=== PATIENT | female | born 1950 | race Caucasian/White ===

== ENCOUNTER 2016-04-20 13:15 | Outpatient (RCR) | payer OTHER, MEDICARE ==
[~2016-04-20 13:15] MED LIST: AMYTRIPTILINE; ANTIVERT 25MG25 MG PO; ASPIRIN 81M81 MG/TA2 PO; ASPIRIN E.C. 8181 MG PO; BACTRIM DS 8001 TAB PO; BETAPACE 80MG80 MG PO; CALCIUM 1200 W/1 SGL PO; CARDIZEM CD 12120 MG PO; CATAPRES 0.1MG0.1 MG PO; CEPHALEXIN500 M1 PO; CLARITIN 1010 MG/TAB PO; COLACE 100100 MG/CAP PO; COMBIRESP IH; CORDARONE200 MG/TAB PO; COUMADIN 5MG5 MG/TAB PO; COUMADIN PO; DILTIAZEM; DILTIAZEM120 MG PO; DOXYCYCLINE 10100 MG PO; ELAVIL50 MG PO; FLECAINIDE150 MG PO; FLONASE NASAL S16 GM NS; FOLIC ACID 40400 MCG PO; GLUCOPHAGE500 MG/TAB PO; GLUCOTROL 5M5 MG/TAB PO; HALCION; HALCION0.25 M1 PO; HALCION0.25 MG PO; HCTZ; HCTZ 25MG TAB25 MG PO; HCTZ 25MG25 MG PO; HYDROCODONE/APAP PO; IRON TABLETS325 MG PO; LASIX 20MG TABL20 MG PO; LASIX 40MG TABL40 MG PO; LEADER CLE17 GM/Dose PO; LEVAQUIN 750MG750 M1 PO; LEVOTHYROXIN0.075 MG PO; LISINOPRIL/HCTZ1 TA1 PO; LOPRESSOR 225 MG/TAB PO; MOTRIN 800800 MG/TAB PO; NEURONTIN300 MG/CAP PO; NEXIUM 20MG20 MG PO; NITROSTAT0.4 MG/TAB SL; NORCO 325 MG-51 TAB PO; NORCO 325 MG-7.1 TAB PO; NORVASC 10MG10 MG PO; PACERONE100 MG PO; PACERONE200 MG PO; PHENERGAN 25 TA25 MG PO; PRADAXA 150MG150 MG PO; PRAVACHOL 20MG20 MG PO; PREDNISONE10 MG PO; PREDNISONE20 MG PO; PRILOSEC 20MG20 MG PO; PRINIVIL2.5 MG PO; SENOKOT8.6 MG PO; SYNTHROID0.075 MG/T PO; SYNTHROID0.088 MG/T PO; TAMBOCOR150 MG PO; THYROID; TYLENOL 325MG325 MG PO; ULTRAM 50MG TAB50 MG; VENTOLIN0.09 MG IH; VITAMIN C500 MG PO; ZANTAC150 MG PO; ZESTORETIC 12.51 TA1 PO; ZITHROMAX 250M250 MG PO; ZOCOR5 MG PO; ZOFRAN 4MG T4 MG/TAB PO; ZOFRAN ODT4 MG PO
[2016-04-21] MEDS ORDERED: KLOR-CON M2020 MEQ PO (11:14)
[2016-05-04] MEDS ORDERED: NORCO 325 MG-7.1 TAB PO (10:15)
[2016-05-04] MEDS ORDERED: TYLENOL 325MG325 MG PO (10:16)
[2016-05-04] MEDS ORDERED: ROXICODONE 55 MG/TAB PO (10:16)
[2016-05-04] MEDS ORDERED: OYSCO 500500 M1 PO (10:17)
[2016-05-04] MEDS ORDERED: LASIX 20MG TABL20 MG PO (10:17)
[2016-05-04] MEDS ORDERED: MIRTAZAPINE7.5 MG PO (10:17)
[2016-05-04] MEDS ORDERED: KLOR-CON M2020 MEQ PO (10:18)
[2016-05-04] MEDS ORDERED: COLACE 100100 MG/CAP PO (10:19)
[2016-05-04] MEDS ORDERED: DULCOLAX S10 MG/SUPP RC (10:19)
[2016-05-04] MEDS ORDERED: ZOFRAN ODT4 MG PO (10:20)
[2016-05-04] MEDS ORDERED: MIRALAX PA17 GM/Dose PO (10:20)
[2016-05-04] MEDS ORDERED: SENOKOT S 50 MG1 TAB PO (10:20)
[2016-05-04] MEDS ORDERED: NYSTATIN POWDER30 GM TOP (10:21)
[2016-05-04] MEDS ORDERED: VITAMINC500CH PO (10:21)
[2016-05-04] MEDS ORDERED: MULTI VITAMINS1 TAB PO (10:21)
[2016-05-04] MEDS ORDERED: ATIVAN 1MG T1 MG/TAB PO (12:07)
[2016-05-04] MEDS ORDERED: TUMS ULTRA1000 MG PO (12:07)
== END 2016-06-19 | disposition still patient (30) ==
LOC: MKS.ESL.PT
DX: S62.102D Fracture of unspecified carpal bone, left wrist, subsequent encounter for fracture with routine healing (principal); W19.XXXD Unspecified fall, subsequent encounter; R53.1 Weakness
CPT/HCPCS: G0283-GP; G8978-GP; G8979-GP

== ENCOUNTER → 2016-06-20 | Outpatient (CLI) | payer OTHER, MEDICARE ==
[~2016-06-20] MED LIST changes: +ATIVAN 1MG T1 MG/TAB PO; +DULCOLAX S10 MG/SUPP RC; +KLOR-CON M2020 MEQ PO; +LIORESAL 1010 MG/TAB PO; +MIRALAX PA17 GM/Dose PO; +MIRTAZAPINE7.5 MG PO; +MULTI VITAMINS1 TAB PO; +NYSTATIN POWDER30 GM TOP; +OYSCO 500500 M1 PO; +ROXICODONE 55 MG/TAB PO; +SENOKOT S 50 MG1 TAB PO; +TUMS ULTRA1000 MG PO; +VITAMINC500CH PO
== END ==
LOC: COL.RAD 10:25
DX: R05 Cough (principal); R06.2 Wheezing; I51.7 Cardiomegaly; R09.89 Other specified symptoms and signs involving the circulatory and respiratory systems

== ENCOUNTER 2016-07-12 13:34 | Inpatient (IN) | payer MEDICARE ==
[~2016-07-12] VITALS: Ht 162.6 cm; Wt 98.2 kg
[~2016-07-12 13:34] MED LIST changes: -LIORESAL 1010 MG/TAB PO
[2016-07-12 16:23] VITALS: BP 103/38; PULSE 67; TEMP 97.7
[2016-07-13 02:36] VITALS: BP 126/38; PULSE 65; TEMP 97.8
[2016-07-13 16:44] VITALS: BP 115/38; PULSE 63; TEMP 98.5
[2016-07-14 03:16] VITALS: BP 105/40; PULSE 64; TEMP 98.6
[2016-07-14 07:29] LABS: CALCIUM 9.6 mg/dL (8.4-10.2); CREATININE, serum 1.21 mg/dL (0.52-1.25); MAGNESIUM 2.2 mg/dL (1.6-2.3); POTASSIUM 3.8 mmol/L (3.4-5.0)
[2016-07-14 16:52] VITALS: BP 118/36; PULSE 68; TEMP 97.7
[2016-07-15 05:35] VITALS: BP 97/78; PULSE 82; TEMP 97
[2016-07-15 18:37] VITALS: BP 98/34; PULSE 69; TEMP 97.6
[2016-07-15 22:54] VITALS: BP 115/51
[2016-07-16 06:14] VITALS: BP 109/45; PULSE 58; TEMP 98.4
[2016-07-16 13:00] VITALS: BP 115/34; PULSE 66; TEMP 99.1
[2016-07-16 16:26] VITALS: BP 116/35; PULSE 58; TEMP 98.6
[2016-07-17 04:15] VITALS: BP 111/37; PULSE 54; TEMP 98
[2016-07-17 04:21] VITALS: BP 125/58; PULSE 56
[2016-07-17 08:52] VITALS: PULSE 58; TEMP 97.3
[2016-07-17 17:58] VITALS: BP 106/50; PULSE 76; TEMP 98.8
[2016-07-18 04:35] VITALS: BP 107/37; PULSE 53; TEMP 97.9
[2016-07-18 17:11] VITALS: BP 125/51; PULSE 64; TEMP 97.6
[2016-07-19 04:10] VITALS: BP 126/50; PULSE 68; TEMP 97.7
[2016-07-19 15:47] VITALS: BP 133/52; PULSE 64; TEMP 98
[2016-07-20 05:05] VITALS: BP 147/57; PULSE 59; TEMP 97.8
[2016-07-20 16:38] VITALS: BP 123/46; PULSE 60; TEMP 97
[2016-07-21 05:04] VITALS: BP 110/48; PULSE 63; TEMP 97.9
[2016-07-21 17:04] VITALS: BP 117/55; PULSE 61; TEMP 98.8
[2016-07-22 07:11] VITALS: BP 130/50; PULSE 66; TEMP 97.5
[2016-07-22 16:54] VITALS: BP 107/37; PULSE 62; TEMP 97.5
[2016-07-23 06:00] VITALS: BP 111/43; PULSE 58; TEMP 97.9
[2016-07-23 16:31] VITALS: BP 120/43; PULSE 91; TEMP 98.4
[2016-07-24 06:32] VITALS: BP 104/49; PULSE 57; TEMP 97.7
[2016-07-24 17:43] VITALS: BP 113/42; PULSE 68; TEMP 98.4
[2016-07-24 20:34] LABS: PH 5 (5-8); SQUAMOUS EPITHELIAL None Seen /hpf; URINE APPEARANCE Clear; URINE BACTERIA None Seen /hpf; URINE BILIRUBIN Negative (NEGATIVE); URINE BLOOD Negative (NEGATIVE); URINE COLOR Yellow; URINE GLUCOSE Negative (NEGATIVE); URINE KETONE Negative (NEGATIVE); URINE RBC None Seen /hpf; URINE UROBILINOGEN Negative (NEGATIVE); URINE WBC 0-2 /hpf
[2016-07-25 07:14] VITALS: BP 120/39; PULSE 67; TEMP 98.1
[2016-07-25 17:19] VITALS: BP 129/41; PULSE 63; TEMP 97.7
[2016-07-26 04:22] VITALS: BP 107/38; PULSE 56; TEMP 98.2
[2016-07-26 17:06] VITALS: BP 133/45; PULSE 53; TEMP 98.7
[2016-07-27 04:30] VITALS: BP 117/48; PULSE 63; TEMP 97.5
[2016-07-27 17:36] VITALS: BP 120/42; PULSE 69; TEMP 98.9
[2016-07-28 06:59] VITALS: BP 112/55; PULSE 50; TEMP 98.1
[2016-07-28 18:21] VITALS: BP 119/45; PULSE 66; TEMP 97
[2016-07-29 05:23] VITALS: BP 106/46; PULSE 60; TEMP 98.5
[2016-07-30 05:13] VITALS: BP 121/51; PULSE 67; TEMP 97.5
[2016-07-30 18:00] VITALS: BP 122/30; PULSE 64; TEMP 99
[2016-07-30 23:07] VITALS: BP 121/48; PULSE 61
[2016-07-31 04:56] VITALS: BP 98/37; PULSE 54; TEMP 98.2
[2016-07-31 16:53] VITALS: BP 148/53; PULSE 60; TEMP 99.3
[2016-08-01 05:46] VITALS: BP 117/51; PULSE 67; TEMP 97.9
[2016-08-01 16:16] VITALS: BP 111/47; PULSE 60; TEMP 98.8
[2016-08-02 04:41] VITALS: BP 101/31; PULSE 65; TEMP 97.6
[2016-08-02 07:15] VITALS: BP 131/44
[2016-08-02 07:49] VITALS: PULSE 69
[2016-08-02] MEDS ORDERED: LIORESAL 1010 MG/TAB PO (12:20)
[2016-08-02] MEDS ORDERED: NEURONTIN300 MG/CAP PO (12:21)
[2016-08-02] MEDS ORDERED: LASIX 20MG TABL20 MG PO (12:23)
[2016-08-02] MEDS ORDERED: ROXICODONE 55 MG/TAB PO (12:25)
[2016-08-02] MEDS ORDERED: ATIVAN 1MG T1 MG/TAB PO (12:25)
== END 2016-08-02 15:24 | DRG 560 ==
PROVIDERS: Internal Medicine
DX: S72.402D Unspecified fracture of lower end of left femur, subsequent encounter for closed fracture with routine healing (principal); Z68.42 Body mass index [BMI] 45.0-49.9, adult; S42.355D Nondisplaced comminuted fracture of shaft of humerus, left arm, subsequent encounter for fracture with routine healing; W18.30XD Fall on same level, unspecified, subsequent encounter; E11.9 Type 2 diabetes mellitus without complications; I48.0 Paroxysmal atrial fibrillation; E66.01 Morbid (severe) obesity due to excess calories; I10 Essential (primary) hypertension
CPT/HCPCS: 99222-AI; 99232-AI; 99239; J1815

== ENCOUNTER → 2016-08-10 | Outpatient (CLI) | payer MEDICARE ==
[~2016-08-10] MED LIST changes: +LIORESAL 1010 MG/TAB PO
[2016-08-10 12:48] LABS: CALCIUM 9.6 mg/dL (8.4-10.2); CREATININE, serum 1.08 mg/dL (0.52-1.25); MAGNESIUM 2.2 mg/dL (1.6-2.3); POTASSIUM 4.3 mmol/L (3.4-5.0)
== END ==
LOC: ZLAB.STJ 09:14
PROVIDERS: Internal Medicine
DX: M97.12XD Periprosthetic fracture around internal prosthetic left knee joint, subsequent encounter (principal)

== ENCOUNTER 2016-08-24 07:22 | Day surgery (SDC) | payer MEDICARE ==
[2006-04-22 13:39] VITALS: BP 162/79
[~2016-08-24] VITALS: Ht 162.6 cm; Wt 127.7 kg
[2016-08-24 09:15] VITALS: BP 126/40; PULSE 64; TEMP 97.6
[2016-08-24] MEDS ORDERED: TYLENOL 325MG325 MG PO (09:32)
[2016-08-24] MEDS ORDERED: SENOKOT S 50 MG1 TAB PO (09:36)
[2016-08-24 12:10] VITALS: BP 130/49; PULSE 66; TEMP 97.7
[2016-08-24 12:25] VITALS: BP 143/67; PULSE 64
[2016-08-24 12:40] VITALS: BP 124/53; PULSE 61
[2016-08-24 12:55] VITALS: BP 134/44; PULSE 67
== END 2016-08-24 13:35 ==
LOC: SDCO 07:22
DX: T84.125A Displacement of internal fixation device of left femur, initial encounter (principal); T84.84XA Pain due to internal orthopedic prosthetic devices, implants and grafts, initial encounter; Z87.891 Personal history of nicotine dependence
CPT/HCPCS: J2405; J2704; J3010; J7030

== ENCOUNTER → 2017-03-21 | Outpatient (CLI) | payer MEDICARE | LOC: MC.RAD 10:57 | DX: Z12.31 Encounter for screening mammogram for malignant neoplasm of breast (principal); R92.0 Mammographic microcalcification found on diagnostic imaging of breast ==

== ENCOUNTER → 2017-03-27 | Outpatient (CLI) | payer MEDICARE | LOC: MC.RAD 14:00 | DX: R92.0 Mammographic microcalcification found on diagnostic imaging of breast (principal); R92.1 Mammographic calcification found on diagnostic imaging of breast ==

== ENCOUNTER → 2017-04-04 | Outpatient (CLI) | payer MEDICARE | LOC: MC.RAD 08:19 | DX: R92.0 Mammographic microcalcification found on diagnostic imaging of breast (principal) ==

== ENCOUNTER 2017-05-15 07:03 | Day surgery (SDC) | payer MEDICARE ==
[2006-04-22 13:39] VITALS: BP 162/79
[~2017-05-15] VITALS: Ht 162.6 cm; Wt 118.2 kg
[2017-05-15 08:39] VITALS: BP 144/58; PULSE 57; TEMP 97.3
[2017-05-15 08:44] LABS: BASO % 0.3 % (0.0-2.0); EOS # 0.2 (0.0-0.7); EOS % 2.3 % (0-4.0); GRAN % 72.7 % (42.2-75.2); HEMATOCRIT 38.4 % (37.0-47.0); LYMPH % 14.6 % (20.0-51.0); MEAN CELL VOLUME 89 fl (80.0-100.0); MEAN CORPUSCULAR HEMOGLOBIN 27 pg (27.0-31.0); MEAN CORPUSCULAR HGB CONC 31 g/dl (33.0-37.0); MONO # 0.7 (0.1-0.6); MONO % 9.8 % (1.7-9.3); PLATELET COUNT 300 K/mm3 (130-400); RED BLOOD COUNT 4.34 M/mm3 (4.10-5.30); WHITE BLOOD COUNT 6.8 K/mm3 (4.8-10.8)
[2017-05-15 08:46] LABS: HEMOGLOBIN 11.9 g/dl (12.5-16.0)
[2017-05-15] MEDS ORDERED: LASIX 20MG TABL20 MG PO (08:50)
[2017-05-15 08:54] LABS: CALCIUM 9.5 mg/dL (8.4-10.2); CREATININE, serum 1.03 mg/dL (0.52-1.25)
[2017-05-15 12:32] VITALS: BP 126/53; PULSE 64
[2017-05-15 12:47] VITALS: BP 124/58; PULSE 61
[2017-05-15 13:03] VITALS: BP 138/44; PULSE 54
[2017-05-15 13:18] VITALS: BP 128/51; PULSE 53
== END 2017-05-15 14:12 | disposition home or self-care (01) ==
LOC: SDCO 07:03
PROVIDERS: Registered Nurse
DX: D05.12 Intraductal carcinoma in situ of left breast (principal); I10 Essential (primary) hypertension; E05.00 Thyrotoxicosis with diffuse goiter without thyrotoxic crisis or storm; I48.2 Chronic atrial fibrillation; E11.40 Type 2 diabetes mellitus with diabetic neuropathy, unspecified; J44.9 Chronic obstructive pulmonary disease, unspecified; G47.33 Obstructive sleep apnea (adult) (pediatric); M19.90 Unspecified osteoarthritis, unspecified site; D64.9 Anemia, unspecified; Z79.01 Long term (current) use of anticoagulants; Z90.49 Acquired absence of other specified parts of digestive tract; Z96.653 Presence of artificial knee joint, bilateral; Z80.3 Family history of malignant neoplasm of breast; Z82.49 Family history of ischemic heart disease and other diseases of the circulatory system
CPT/HCPCS: J0171; J0690; J2250; J2704; J3010; J7030

== ENCOUNTER 2017-08-12 10:40 | Emergency (ER) | payer MEDICARE ==
[2006-04-22 13:39] VITALS: BP 162/79
[~2017-08-12] VITALS: Ht 162.6 cm; Wt 118.2 kg
[2017-08-12 10:44] VITALS: TEMP 97.3
[2017-08-12 12:55] VITALS: BP 121/77; PULSE 91
[2017-08-12] MEDS ORDERED: ZITHROMAX Z PA250 MG PO (12:55)
[2017-08-12] MEDS ORDERED: PREDNISONE20 MG PO (12:55)
== END 2017-08-12 12:58 | disposition home or self-care (01) ==
LOC: COL.ER 10:40
DX: J20.9 Acute bronchitis, unspecified (principal); J45.909 Unspecified asthma, uncomplicated; I48.91 Unspecified atrial fibrillation; E05.00 Thyrotoxicosis with diffuse goiter without thyrotoxic crisis or storm; Z87.891 Personal history of nicotine dependence; Z90.49 Acquired absence of other specified parts of digestive tract; Z98.890 Other specified postprocedural states; Z79.84 Long term (current) use of oral hypoglycemic drugs; Z79.01 Long term (current) use of anticoagulants

== ENCOUNTER → 2017-11-07 | Outpatient (CLI) | payer MEDICARE ==
[~2017-11-07] MED LIST changes: +ZITHROMAX Z PA250 MG PO
== END ==
LOC: MC.RAD 11-01 11:00
DX: D05.12 Intraductal carcinoma in situ of left breast (principal); Z98.890 Other specified postprocedural states

== ENCOUNTER 2018-03-06 07:38 | Emergency (ER) | payer MEDICARE ==
[2006-04-22 13:39] VITALS: BP 162/79
[~2018-03-06] VITALS: Ht 160 cm; Wt 105.5 kg
[2018-03-06 07:40] VITALS: TEMP 97.1
[2018-03-06 08:11] LABS: BASO % 0.2 % (0.0-2.0); EOS # 0.2 (0.0-0.7); EOS % 1.9 % (0-4.0); GRAN # 7.3 (1.4-6.5); HEMATOCRIT 37.8 % (37.0-47.0); HEMOGLOBIN 12.1 g/dl (12.5-16.0); LYMPH # 1.1 (1.2-3.4); LYMPH % 12.1 % (20.0-51.0); MEAN CELL VOLUME 89 fl (80.0-100.0); MEAN CORPUSCULAR HEMOGLOBIN 28 pg (27.0-31.0); MEAN CORPUSCULAR HGB CONC 32 g/dl (33.0-37.0); MEAN PLATELET VOLUME 9.3 fl (7.4-10.4); MONO # 0.8 (0.1-0.6); MONO % 8.5 % (1.7-9.3); PLATELET COUNT 352 K/mm3 (130-400); RED BLOOD COUNT 4.27 M/mm3 (4.10-5.30); REDCELL DISTRIBUTION WIDTH-CV 14.2 % (11.5-14.5)
[2018-03-06 08:25] LABS: ALANINE AMINOTRANSFERASE 29 U/L (9-52); ALBUMIN 4.5 gm/dL (3.5-5.0); ALKALINE PHOSPHATASE 76 U/L (50-136); ANION GAP 13 mmol/L (7-16); AST,SGOT 25 U/L (15-37); BILIRUBIN,TOTAL 0.6 mg/dL (0.0-1.0); BLOOD UREA NITROGEN 20 mg/dL (7-17); C-REACTIVE PROTEIN 0.7 mg/dL (0.0-0.9); CALCIUM 9.4 mg/dL (8.4-10.2); CARBON DIOXIDE 26 mmol/L (22-30); CHLORIDE 99 mmol/L (98-107); CREATININE, serum 1.19 mg/dL (0.52-1.25); GLUCOSE 107 mg/dL (74-106); LIPASE 61 U/L (23-300); SODIUM 138 mmol/L (137-145); TOTAL PROTEIN 7.7 gm/dL (6.4-8.2)
[2018-03-06 08:29] LABS: COLLECTION METHOD CLEAN CATCH
[2018-03-06 08:37] LABS: TROPONIN-I < 0.012 ng/mL (0.000-0.034)
[2018-03-06 08:57] LABS: MUCOUS Present /lpf; PH 5 (5-8); URINE APPEARANCE Hazy; URINE BACTERIA None Seen /hpf; URINE BILIRUBIN Negative (NEGATIVE); URINE BLOOD Negative (NEGATIVE); URINE COLOR Amber; URINE GLUCOSE Negative (NEGATIVE); URINE KETONE 1+ (NEGATIVE); URINE LEUKOCYTE ESTERASE Negative (NEGATIVE); URINE NITRATE Negative (NEGATIVE); URINE PROTEIN(semi-quant) 1+ (NEGATIVE); URINE UROBILINOGEN >=4.0 mg/dL (NEGATIVE)
[2018-03-06] MEDS ORDERED: ZOFRAN ODT4 MG PO (09:02)
[2018-03-06 09:46] VITALS: BP 130/77; PULSE 68
== END 2018-03-06 09:47 | disposition home or self-care (01) ==
LOC: COL.ER 07:38
PROVIDERS: Physician Assistant
DX: R11.10 Vomiting, unspecified (principal); E11.9 Type 2 diabetes mellitus without complications; I10 Essential (primary) hypertension; I48.91 Unspecified atrial fibrillation; J45.909 Unspecified asthma, uncomplicated; Z90.49 Acquired absence of other specified parts of digestive tract; Z98.890 Other specified postprocedural states; Z96.653 Presence of artificial knee joint, bilateral; Z87.891 Personal history of nicotine dependence; Z79.52 Long term (current) use of systemic steroids
CPT/HCPCS: J2405; J7030

== ENCOUNTER 2018-10-30 14:00 | Outpatient (RCR) | payer MEDICARE | END 2019-01-15 | LOC: MKS.ESL.PT | DX: M47.812 Spondylosis without myelopathy or radiculopathy, cervical region (principal) ==

== ENCOUNTER → 2018-11-18 | Outpatient (CLI) | payer MEDICARE | LOC: MC.RAD 13:32 | DX: Z12.31 Encounter for screening mammogram for malignant neoplasm of breast (principal) ==

== ENCOUNTER 2019-04-14 08:50 | Emergency (ER) | payer MEDICARE ==
[2006-04-22 13:39] VITALS: BP 162/79
[~2019-04-14] VITALS: Ht 162.6 cm; Wt 104.5 kg
[2019-04-14 08:57] VITALS: BP 166/69; TEMP 98
[2019-04-14] MEDS ORDERED: CEPHALEXIN500 M1 PO (09:29)
[2019-04-14 10:00] VITALS: PULSE 67
== END 2019-04-14 10:00 | disposition home or self-care (01) ==
LOC: COL.ER 08:50
DX: S91.332A Puncture wound without foreign body, left foot, initial encounter (principal); Z79.84 Long term (current) use of oral hypoglycemic drugs; W22.8XXA Striking against or struck by other objects, initial encounter; Y92.009 Unspecified place in unspecified non-institutional (private) residence as the place of occurrence of the external cause

== ENCOUNTER 2019-05-14 04:23 | Emergency (ER) | payer MEDICARE ==
[2006-04-22 13:39] VITALS: BP 162/79
[~2019-05-14] VITALS: Ht 162.6 cm; Wt 106.8 kg
[2019-05-14 04:25] VITALS: TEMP 98.4
[2019-05-14] MEDS ORDERED: GLUCOPHAGE500 MG/TAB PO (04:36)
[2019-05-14 05:19] LABS: HEMATOCRIT 32.6 % (37.0-47.0); HEMOGLOBIN 10.2 g/dl (12.5-16.0); MEAN CELL VOLUME 92 fl (80.0-100.0); MEAN CORPUSCULAR HEMOGLOBIN 29 pg (27.0-31.0); MEAN CORPUSCULAR HGB CONC 31 g/dl (33.0-37.0); MEAN PLATELET VOLUME 9.1 fl (7.4-10.4); PLATELET COUNT 264 K/mm3 (130-400); RED BLOOD COUNT 3.53 M/mm3 (4.10-5.30); REDCELL DISTRIBUTION WIDTH-CV 13.7 % (11.5-14.5)
[2019-05-14 05:32] LABS: ALANINE AMINOTRANSFERASE 19 U/L (9-52); ALBUMIN 3.9 gm/dL (3.5-5.0); ALKALINE PHOSPHATASE 76 U/L (50-136); ANION GAP 6 mmol/L (7-16); AST,SGOT 21 U/L (15-37); BILIRUBIN,TOTAL 0.3 mg/dL (0.0-1.0); BLOOD UREA NITROGEN 29 mg/dL (7-17); C-REACTIVE PROTEIN 0.9 mg/dL (0.0-0.9); CALCIUM 8.2 mg/dL (8.4-10.2); CARBON DIOXIDE 25 mmol/L (22-30); CHLORIDE 108 mmol/L (98-107); CREATININE, serum 1.12 (0.52-1.25); GLUCOSE 132 mg/dL (74-106); POTASSIUM 4.8 mmol/L (3.4-5.0); SODIUM 139 mmol/L (137-145); TOTAL PROTEIN 6.9 gm/dL (6.4-8.2)
[2019-05-14 05:41] LABS: TROPONIN-I < 0.012 ng/mL (0.000-0.035)
[2019-05-14 06:10] LABS: BAND 22 % (0-10); EOSINOPHIL 1 % (0-4); METAMYELOCYTE 1 % (0-0); NEUTROPHILS 75 % (42.0-75.2); PLATELET ESTIMATE NORMAL (NORMAL)
[2019-05-14 06:34] LABS: PROTHROMBIN TIME 11.6 SECONDS (9.7-12.8)
[2019-05-14 06:37] LABS: PARTIAL THROMBOPLASTIN TIME 40.2 SECONDS (26.0-37.0)
[2019-05-14 06:39] LABS: COLLECTION METHOD CLEAN CATCH
[2019-05-14 06:44] LABS: MUCOUS Present /lpf; PH 7 (5-8); SQUAMOUS EPITHELIAL 0-2 /hpf; URINE APPEARANCE Clear; URINE BACTERIA None Seen /hpf; URINE BILIRUBIN Negative (NEGATIVE); URINE BLOOD Negative (NEGATIVE); URINE COLOR Yellow; URINE GLUCOSE Negative (NEGATIVE); URINE KETONE Negative (NEGATIVE); URINE LEUKOCYTE ESTERASE Negative (NEGATIVE); URINE NITRATE Negative (NEGATIVE); URINE PROTEIN(semi-quant) Negative (NEGATIVE); URINE RBC 0-2 /hpf; URINE UROBILINOGEN Negative (NEGATIVE)
[2019-05-14 08:48] VITALS: BP 107/36; PULSE 73
== END 2019-05-14 08:50 | disposition home or self-care (01) ==
LOC: COL.ER 04:23
PROVIDERS: Emergency Medicine
DX: R11.10 Vomiting, unspecified (principal); I48.91 Unspecified atrial fibrillation; Z90.89 Acquired absence of other organs
CPT/HCPCS: J2405; J7030

== ENCOUNTER → 2020-01-13 | Outpatient (CLI) | payer MEDICARE | LOC: MC.RAD 13:19 | DX: Z12.31 Encounter for screening mammogram for malignant neoplasm of breast (principal); R92.0 Mammographic microcalcification found on diagnostic imaging of breast; Z98.890 Other specified postprocedural states ==

== ENCOUNTER → 2020-01-15 | Outpatient (CLI) | payer MEDICARE | LOC: MC.RAD 09:46 | DX: R92.0 Mammographic microcalcification found on diagnostic imaging of breast (principal) ==

== ENCOUNTER → 2020-01-28 | Outpatient (CLI) | payer MEDICARE | LOC: MC.RAD 09:43 | DX: R92.1 Mammographic calcification found on diagnostic imaging of breast (principal) ==

== ENCOUNTER 2020-07-01 17:59 | Emergency (ER) | payer MEDICARE ==
[2006-04-22 13:39] VITALS: BP 162/79
[~2020-07-01] VITALS: Ht 160 cm; Wt 109.1 kg
[2020-07-01 17:59] VITALS: TEMP 98
[2020-07-01 18:51] LABS: BASO % 0.1 % (0.0-2.0); EOS # 0.2 (0.0-0.7); EOS % 2.3 % (0-4.0); GRAN # 6.3 (1.4-6.5); GRAN % 71.7 % (42.2-75.2); HEMOGLOBIN 10.4 g/dl (12.5-16.0); LYMPH # 1.4 (1.2-3.4); LYMPH % 16.2 % (20.0-51.0); MEAN CELL VOLUME 90 fl (80.0-100.0); MEAN CORPUSCULAR HEMOGLOBIN 28 pg (27.0-31.0); MEAN CORPUSCULAR HGB CONC 31 g/dl (33.0-37.0); MONO # 0.8 (0.1-0.6); MONO % 9.4 % (1.7-9.3); PLATELET COUNT 317 K/mm3 (130-400); REDCELL DISTRIBUTION WIDTH-CV 13.7 % (11.5-14.5)
[2020-07-01 18:54] LABS: HEMATOCRIT 33.3 % (37.0-47.0)
[2020-07-01 19:04] LABS: ALANINE AMINOTRANSFERASE 19 U/L (4-34); ALBUMIN 4.2 gm/dL (3.5-5.0); ALKALINE PHOSPHATASE 57 U/L (50-136); ANION GAP 9 mmol/L (7-16); AST,SGOT 23 U/L (15-37); BILIRUBIN,TOTAL 0.4 mg/dL (0.0-1.0); BLOOD UREA NITROGEN 29 mg/dL (7-17); CALCIUM 9.9 mg/dL (8.4-10.2); CARBON DIOXIDE 26 mmol/L (22-30); CHLORIDE 102 mmol/L (98-107); CREATININE, serum 1.34 (0.52-1.25); GLUCOSE 145 mg/dL (74-106); SODIUM 137 mmol/L (137-145); TOTAL PROTEIN 7.1 gm/dL (6.4-8.2)
[2020-07-01 19:18] LABS: TROPONIN-I < 0.012 ng/mL (0.000-0.035)
[2020-07-01 19:39] LABS: COLLECTION METHOD CLEAN CATCH
[2020-07-01 19:44] LABS: MUCOUS Present /lpf; PH 5 (5-8); SQUAMOUS EPITHELIAL 0-2 /hpf; URINE APPEARANCE Clear; URINE BACTERIA None Seen /hpf; URINE BILIRUBIN Negative (NEGATIVE); URINE BLOOD Negative (NEGATIVE); URINE COLOR Yellow; URINE GLUCOSE Negative (NEGATIVE); URINE KETONE Negative (NEGATIVE); URINE LEUKOCYTE ESTERASE Negative (NEGATIVE); URINE NITRATE Negative (NEGATIVE); URINE PROTEIN(semi-quant) Negative (NEGATIVE); URINE RBC 0-2 /hpf; URINE UROBILINOGEN Negative (NEGATIVE)
[2020-07-01] MEDS ORDERED: ANTIVERT 25MG25 MG PO (20:41)
[2020-07-01 20:45] VITALS: BP 139/52; PULSE 70
== END 2020-07-01 20:50 | disposition home or self-care (01) ==
LOC: COL.ER 17:59
PROVIDERS: Nurse Practitioner
DX: I10 Essential (primary) hypertension (principal); E11.9 Type 2 diabetes mellitus without complications; I48.91 Unspecified atrial fibrillation; Z88.8 Allergy status to other drugs, medicaments and biological substances; Z79.84 Long term (current) use of oral hypoglycemic drugs
CPT/HCPCS: J7030

== ENCOUNTER 2021-01-17 16:00 | Outpatient (RCR) | payer MEDICARE | END 2021-03-08 | disposition still patient (30) | LOC: MKS.ESL.PT | DX: I89.0 Lymphedema, not elsewhere classified (principal) ==

== ENCOUNTER → 2021-03-24 | Outpatient (CLI) | payer MEDICARE | LOC: MC.RAD 02-03 13:30 | DX: Z12.31 Encounter for screening mammogram for malignant neoplasm of breast (principal); Z98.82 Breast implant status; Z98.890 Other specified postprocedural states ==

== ENCOUNTER 2021-05-23 17:40 | Emergency (ER) | payer MEDICARE ==
[~2021-05-23] VITALS: Ht 162.6 cm; Wt 113.6 kg
[2021-05-23 17:45] VITALS: TEMP 97.9
[2021-05-23 18:18] LABS: BASO % 0.3 % (0.0-2.0); EOS # 0.3 K/mm3 (0.0-0.7); EOS % 3.4 % (0-4.0); GRAN # 7.2 K/mm3 (1.4-6.5); HEMOGLOBIN 10.2 g/dl (12.5-16.0); LYMPH # 1.5 K/mm3 (1.2-3.4); LYMPH % 14.5 % (20.0-51.0); MEAN CELL VOLUME 90 fl (80.0-100.0); MEAN CORPUSCULAR HEMOGLOBIN 28 pg (27.0-31.0); MEAN CORPUSCULAR HGB CONC 31 g/dl (33.0-37.0); MEAN PLATELET VOLUME 9.2 fl (7.4-10.4); MONO % 9.6 % (1.7-9.3); PLATELET COUNT 366 K/mm3 (130-400); RED BLOOD COUNT 3.71 M/mm3 (4.10-5.30); REDCELL DISTRIBUTION WIDTH-CV 13.7 % (11.5-14.5)
[2021-05-23 18:20] LABS: HEMATOCRIT 33.3 % (37.0-47.0)
[2021-05-23 18:21] LABS: INR 1.2 (0.8-3.0); PROTHROMBIN TIME 13.1 SECONDS (9.7-12.8)
[2021-05-23 18:29] LABS: ALANINE AMINOTRANSFERASE 13 U/L (0-55); ALBUMIN 3.7 gm/dL (3.4-4.8); ALKALINE PHOSPHATASE 63 U/L (40-150); ANION GAP 12 mmol/L (7-16); AST,SGOT 16 U/L (5-34); BILIRUBIN,TOTAL 0.4 mg/dL (0.2-1.2); BLOOD UREA NITROGEN 24 mg/dL (10-20); CALCIUM 8.5 mg/dL (8.4-10.2); CARBON DIOXIDE 25 mmol/L (23-31); CHLORIDE 105 mmol/L (98-107); GLUCOSE 156 mg/dL (70-99); POTASSIUM 4.2 mmol/L (3.5-4.5); SODIUM 142 mmol/L (136-145)
[2021-05-23 19:14] LABS: TROPONIN-I < 0.010 ng/mL (0.00-0.033)
[2021-05-23 20:53] VITALS: BP 160/57; PULSE 75
== END 2021-05-23 20:53 | disposition home or self-care (01) ==
LOC: COL.ER 17:40
PROVIDERS: Family Medicine
DX: I10 Essential (primary) hypertension (principal); E11.9 Type 2 diabetes mellitus without complications; Z79.84 Long term (current) use of oral hypoglycemic drugs; Z79.899 Other long term (current) drug therapy

== ENCOUNTER 2021-12-28 13:00 | Emergency (ER) | payer OTHER, MEDICARE ==
[~2021-12-28] VITALS: Ht 162.6 cm; Wt 113.6 kg
[2021-12-28 13:07] VITALS: TEMP 98
[2021-12-28 14:09] LABS: BASO % 0.2 % (0.0-2.0); EOS # 0.3 K/mm3 (0.0-0.7); EOS % 3.6 % (0.0-4.0); GRAN # 5.9 K/mm3 (1.4-6.5); GRAN % 72.5 % (42.2-75.2); LYMPH # 1.2 K/mm3 (1.2-3.4); LYMPH % 14.8 % (20.0-51.0); MEAN CELL VOLUME 88 fl (80.0-100.0); MEAN CORPUSCULAR HEMOGLOBIN 27 pg (27-31); MEAN CORPUSCULAR HGB CONC 31 g/dl (33.0-37.0); MEAN PLATELET VOLUME 9.7 fl (7.4-10.4); MONO # 0.7 K/mm3 (0.1-0.6); MONO % 8.5 % (1.7-9.3); PLATELET COUNT 359 K/mm3 (130-400); RED BLOOD COUNT 3.74 M/mm3 (4.10-5.30)
[2021-12-28 14:16] LABS: HEMATOCRIT 32.8 % (37.0-47.0)
[2021-12-28 14:17] LABS: INR 1.2 (0.8-3.0); PROTHROMBIN TIME 14.3 SECONDS (9.7-12.8)
[2021-12-28 14:32] LABS: ALBUMIN 3.5 gm/dL (3.4-4.8); BILIRUBIN,TOTAL 0.4 mg/dL (0.2-1.2); CALCIUM 9.2 mg/dL (8.4-10.2); CREATININE, serum 1.24 mg/dL (0.57-1.11); TOTAL PROTEIN 6.9 gm/dL (6.2-8.1)
[2021-12-28] MEDS ORDERED: NORFLEX 10100 MG/TAB PO (15:26)
[2021-12-28] MEDS ORDERED: NORCO 325 MG-51 TAB PO (15:28)
[2021-12-28 15:30] VITALS: BP 141/72; PULSE 68
== END 2021-12-28 15:41 | disposition home or self-care (01) ==
LOC: COL.ER 13:00
PROVIDERS: Physician Assistant
DX: S16.1XXA Strain of muscle, fascia and tendon at neck level, initial encounter (principal); S39.012A Strain of muscle, fascia and tendon of lower back, initial encounter; S40.011A Contusion of right shoulder, initial encounter; R51.9 Headache, unspecified; I48.91 Unspecified atrial fibrillation; Z87.39 Personal history of other diseases of the musculoskeletal system and connective tissue; Z87.891 Personal history of nicotine dependence; Z79.01 Long term (current) use of anticoagulants; V49.40XA Driver injured in collision with unspecified motor vehicles in traffic accident, initial encounter; Y92.410 Unspecified street and highway as the place of occurrence of the external cause
CPT/HCPCS: J1885; J2360; J3010; Q9967

== ENCOUNTER 2022-01-08 16:04 | Inpatient (IN) | payer MEDICARE ==
[~2022-01-08] VITALS: Ht 162.6 cm; Wt 119.2 kg
[~2022-01-08 16:04] MED LIST changes: +NORFLEX 10100 MG/TAB PO
[2022-01-08 18:29] LABS: MEAN CELL VOLUME 87 fl (80.0-100.0); MEAN CORPUSCULAR HGB CONC 31 g/dl (33.0-37.0); MEAN PLATELET VOLUME 8.8 fl (7.4-10.4); PLATELET COUNT 329 K/mm3 (130-400); RED BLOOD COUNT 3.44 M/mm3 (4.10-5.30); REDCELL DISTRIBUTION WIDTH-CV 15.1 % (11.5-14.5)
[2022-01-08 18:30] LABS: HEMOGLOBIN 9.2 g/dl (12.5-16.0); MEAN CORPUSCULAR HEMOGLOBIN 27 pg (27-31)
[2022-01-08 18:37] LABS: INR 1.3 (0.8-3.0); PROTHROMBIN TIME 15.4 SECONDS (9.7-12.8)
[2022-01-08 18:39] LABS: PARTIAL THROMBOPLASTIN TIME 67.4 SECONDS (26.0-37.0)
[2022-01-08 18:42] LABS: BAND 11 % (0-10); EOSINOPHIL 1 % (0-4); HYPOCHROMIA 1+; LYMPHOCYTE 2 % (20.0-51.0); NEUTROPHILS 79 % (42.0-75.2)
[2022-01-08 18:48] LABS: ALBUMIN 3.4 gm/dL (3.4-4.8); BILIRUBIN,TOTAL 0.3 mg/dL (0.2-1.2); CALCIUM 9.7 mg/dL (8.4-10.2); CREATININE, serum 1.22 mg/dL (0.57-1.11); POTASSIUM 4.8 mmol/L (3.5-4.5); TOTAL PROTEIN 6.6 gm/dL (6.2-8.1)
[2022-01-08 19:49] LABS: COLLECTION METHOD CATHETER
[2022-01-08 19:55] LABS: MUCOUS Present (NOT PRESENT); PH 5 (5-8); SQUAMOUS EPITHELIAL 0-2 /hpf (0-10); URINE APPEARANCE Clear (CLEAR/HAZY); URINE BACTERIA None Seen /hpf (NONE SEEN); URINE BLOOD Negative (NEGATIVE); URINE COLOR Yellow (YELLOW); URINE GLUCOSE Negative (NEGATIVE); URINE KETONE Negative (NEGATIVE); URINE NITRATE Negative (NEGATIVE); URINE PROTEIN(semi-quant) Negative (NEGATIVE); URINE RBC 0-2 /hpf (0-2); URINE UROBILINOGEN Negative (NEGATIVE)
[2022-01-08] MEDS ORDERED: DAZIDOX10 MG PO ×2 (20:36→20:37)
[2022-01-08 20:51] VITALS: BP 150/46; PULSE 67; TEMP 97.6
--- NOTE | 2022-01-08 20:59 | NUR ---
PT ADMIT FROM ER AFTER FALL- MISSED STEP. FX ANKLE AND FEMUR. PT IN SPLINT TO RT LEG IMMOBILE. C/O PAIN 03/27 INSPITE OF MEDS GIVEN IN ER. MED REC COMPLETE, PT MAINTANCE DOSE OF OXYCODONE 10MG Q HS FOR BACK PAIN. MICHELLE NOTIFIED OF PT CONTINUAL COMPLAINT OF PAIN WILL LOOK INTO INCREASING DOSE, GAVE ADDITION 5MG PER ORDER. HX AND ASSESMENT. POC DISCUSS. PT IS ON BLOOD THINER- SURG ONCE ORTHO DEEMS SAFE. CALL LIGHT WI REACH.
[2022-01-09 00:30] VITALS: BP 129/40; PULSE 70; TEMP 98.5
[2022-01-09 04:40] VITALS: BP 139/57; PULSE 76; TEMP 98.6
--- NOTE | 2022-01-09 05:42 | NUR ---
PT REPORT PAIN IS FINALLY TOLERABLE WITH CURRENT REGIMEN. OXYCODONE 15MG AND MORPHINE BREAKTHRU HELPING. EDUCATED ON NOT LETTING PAIN GET BEHIND. RT LEG REMAINS IN SPLIT. AM MEDS W CRACKERS. CALL LIGHT WI REACH. AWAITING ORTHO TO ROUND THIS AM TO GIVE POC. NEEDS MET.
[2022-01-09 06:20] LABS: BASO % 0.1 % (0.0-2.0); EOS # 0.1 K/mm3 (0.0-0.7); EOS % 0.9 % (0.0-4.0); GRAN # 8.7 K/mm3 (1.4-6.5); GRAN % 75.6 % (42.2-75.2); LYMPH # 1.3 K/mm3 (1.2-3.4); LYMPH % 11.5 % (20.0-51.0); MEAN CELL VOLUME 88 fl (80.0-100.0); MEAN CORPUSCULAR HGB CONC 31 g/dl (33.0-37.0); MEAN PLATELET VOLUME 9.5 fl (7.4-10.4); MONO # 1.3 K/mm3 (0.1-0.6); MONO % 11.5 % (1.7-9.3); PLATELET COUNT 344 K/mm3 (130-400); RED BLOOD COUNT 3.01 M/mm3 (4.10-5.30); REDCELL DISTRIBUTION WIDTH-CV 15.2 % (11.5-14.5)
[2022-01-09 06:34] LABS: HEMATOCRIT 26.6 % (37.0-47.0); HEMOGLOBIN 8.1 g/dl (12.5-16.0); MEAN CORPUSCULAR HEMOGLOBIN 27 pg (27-31)
[2022-01-09 06:35] LABS: CALCIUM 9.1 mg/dL (8.4-10.2); CREATININE, serum 1.16 mg/dL (0.57-1.11); POTASSIUM 5.1 mmol/L (3.5-4.5)
[2022-01-09 07:43] VITALS: BP 144/41; PULSE 79; TEMP 98.9
--- NOTE | 2022-01-09 10:37 | NUR ---
SW met with the patient to discuss discharge plan. The patient lives alone in [place]. She reports independence with ADLs and has a cane and walker. The patient's PCP is Dr. Leatha Blandon and she receives her medications from [facility]. The patient has a General DPOA in EMR, but not a DPOA-HC. The patient states that she does not have a DPOA-HC completed yet. She was interested in obtaining a form. MICHAEL provided. The patient states that she is not and that she has one child: Darius Brown" (ph#[phone]). Meek lives in [place]. The patient has multiple fractures in her leg. MICHAEL discussed post-acute rehab upon discharge. The patient is agreeable to rehab and chose 1) [facility] 2) [facility]. SW consulted [facility] Director, Adamaris. MICHAEL contacted and faxed a referral to Kang at [facility]. Awaiting screens. The patient is awaiting surgery. *Discharge plan: post-acute rehab, referrals out*
--- NOTE | 2022-01-09 12:15 | NUR ---
PATIENTS BLOOD PRESSURE 132/38, JAIME FORD INFORMED. NO NEW ORDERS GIVEN AT THIS TIME. PATIENT AWAKE AND ALERT WITH NO COMPLAINTS
[2022-01-09 12:46] VITALS: BP 132/38; PULSE 74; TEMP 98.4
--- NOTE | 2022-01-09 15:00 | NUR ---
WHEN VITALS WERE CHECKED PATIETN WAS SLEEPING AND O2 SAT WAS IN THE 80S. WHEN AWAKENED PATIENTS OXYGEN QUICKLY CLIMBED TO 97%. ATTEMPTED TO PUT PATIENT ON NASAL CANNULA SINCE SHE HAS BEEN MOSTLY SLEEPING. HOWEVER SHE HAS REFUSED MULTIPLE TIMES.
[2022-01-09 16:43] VITALS: BP 143/45; PULSE 82; TEMP 98.8
[2022-01-09 20:02] VITALS: BP 133/42; PULSE 84; TEMP 98.3
[2022-01-10 00:36] VITALS: BP 132/44; PULSE 86; TEMP 98.8
--- NOTE | 2022-01-10 02:05 | NUR ---
PATIENT IN BED. ALERT AND ORIENTED. HS MEDS PER EMAR. C/O MODERATE PAIN TO R KNEE AREA, PRN SOLO 10 MG (PER PATIENT REQUEST) WAS GIVEN. R ANKLE IS SPLINTED AND MINH WRAPPED UP TO THIGH. DE SANTIAGO TO DD WITH YELLOW OUTPUT. PATIENT SATING IN 70S WHEN SLEEPING AND STARTED ON 2 L NC PER RT.
[2022-01-10 04:30] VITALS: BP 157/47; PULSE 79; TEMP 98.5
[2022-01-10 06:04] LABS: BASO % 0.3 % (0.0-2.0); EOS # 0.1 K/mm3 (0.0-0.7); EOS % 0.5 % (0.0-4.0); GRAN # 9.2 K/mm3 (1.4-6.5); GRAN % 77.8 % (42.2-75.2); LYMPH # 1.1 K/mm3 (1.2-3.4); LYMPH % 9.3 % (20.0-51.0); MEAN CELL VOLUME 90 fl (80.0-100.0); MEAN CORPUSCULAR HGB CONC 30 g/dl (33.0-37.0); MEAN PLATELET VOLUME 9.5 fl (7.4-10.4); MONO # 1.4 K/mm3 (0.1-0.6); MONO % 11.5 % (1.7-9.3); PLATELET COUNT 319 K/mm3 (130-400); RED BLOOD COUNT 2.97 M/mm3 (4.10-5.30); REDCELL DISTRIBUTION WIDTH-CV 15.4 % (11.5-14.5)
[2022-01-10 06:20] LABS: HEMATOCRIT 26.7 % (37.0-47.0); MEAN CORPUSCULAR HEMOGLOBIN 27 pg (27-31)
[2022-01-10 06:21] LABS: CALCIUM 9.2 mg/dL (8.4-10.2); CREATININE, serum 1.46 mg/dL (0.57-1.11); MAGNESIUM 2.1 mg/dL (1.6-2.6); POTASSIUM 5.1 mmol/L (3.5-4.5)
[2022-01-10 07:22] VITALS: BP 110/46; PULSE 77; TEMP 98.5
[2022-01-10] MEDS ORDERED: PRESERVISION1 SGL PO ×2 (09:25→09:30)
[2022-01-10 11:17] VITALS: BP 101/45; PULSE 76; TEMP 98.5
--- NOTE | 2022-01-10 11:50 | NUR ---
INFORMED OR TRANSPORT PATIENTS O2 WITH 2LNC WHEN SLEEPING D/T O2 SAT DROPPING TO THE 70S-80S WHILE SLEEPING.
--- NOTE | 2022-01-10 13:08 | NUR ---
The patient is planned to have surgery today. MICHAEL faxed updates to Kang at [facility].
[2022-01-10 20:00] VITALS: BP 155/47; PULSE 74; TEMP 98
[2022-01-11] VITALS (7 sets, daily range): BP systolic 103–146; BP diastolic 33–88; PULSE 60–74; TEMP 98.1–99
--- NOTE | 2022-01-11 01:52 | NUR ---
PATIENT IN BED. ALERT AND ORIENTED AT SHIFT CHANGE. FINISHED DINNER TRAY AND REQUESTED SANDWICH BOX AND ICECREAM. HS MEDS PER EMAR. C/O MODERATE PAIN 5/10 TO L KNEE AND PRN SOLO 15 MG WAS GIVEN. POSTOP VITALS COMPLETE. PATIENT NOW IN BED, VERY DROWSY, AWAKENS TO SPEECH BUT RETURNS TO SLEEP DURING CONVERSATION.
--- NOTE | 2022-01-11 05:37 | NUR ---
PATIENT C/O BEING WET. IV TO L AC LEAKING. STOPPED AND FLUSHED, IV CONTINUED TO LEAK AND WAS DISCONTINUED AT THIS TIME. IV TO L HAND FLUSHED AND WAS PAINFUL TO FLUSH. ATTEMPTED SEVERAL FLUSHES BUT PATIENT DID NOT TOLERATE. IV TO L HAND DISCONTINUED. VANE WALLACESYSTEMS PROTECTION TECHNICIAN CAME UP AND STARTED A 22 G TO L FA. IV TO INT AT THIS TIME.
[2022-01-11 06:40] LABS: BASO % 0.1 % (0.0-2.0); GRAN # 12.5 K/mm3 (1.4-6.5); GRAN % 89.5 % (42.2-75.2); LYMPH # 0.3 K/mm3 (1.2-3.4); LYMPH % 2.4 % (20.0-51.0); MEAN CELL VOLUME 89 fl (80.0-100.0); MEAN CORPUSCULAR HGB CONC 31 g/dl (33.0-37.0); MEAN PLATELET VOLUME 9.7 fl (7.4-10.4); MONO % 7.4 % (1.7-9.3); PLATELET COUNT 273 K/mm3 (130-400); RED BLOOD COUNT 2.67 M/mm3 (4.10-5.30); REDCELL DISTRIBUTION WIDTH-CV 14.9 % (11.5-14.5)
[2022-01-11 06:45] LABS: HEMATOCRIT 23.8 % (37.0-47.0); HEMOGLOBIN 7.3 g/dl (12.5-16.0); MEAN CORPUSCULAR HEMOGLOBIN 27 pg (27-31)
[2022-01-11 06:59] LABS: CALCIUM 8.4 mg/dL (8.4-10.2); CREATININE, serum 1.29 mg/dL (0.57-1.11); POTASSIUM 4.7 mmol/L (3.5-4.5)
--- NOTE | 2022-01-11 14:31 | NUR ---
The patient may be able to discharge tomorrow. Jalyn, with [facility], reports that they have declined the patient. MICHAEL notified and faxed updates to Knag at [facility]
--- NOTE | 2022-01-11 14:44 | NUR ---
Natasha: [facility] Situation: Audit Director went to room on rounds Background: Pt was resting and content Assessment: Pt has no needs and appreciated the visit Recommendation: Audit Director will follow up as needed
[2022-01-11] MEDS ORDERED: CATAPRES 0.1MG0.1 MG PO (15:13)
[2022-01-11] MEDS ORDERED: NITROSTAT0.4 MG/TAB SL (15:14)
--- NOTE | 2022-01-11 15:53 | NUR ---
SW contacted the patient to update about [facility] and [facility]. The patient states that she is not wanting to go to [facility] now. SW informed her of the other local facilities. The patient would prefer to go to [facility] now. If [facility] cannot take, then she states that she is okay with going back to [facility].
--- NOTE | 2022-01-12 02:15 | NUR ---
PATIENT IN BED. ALERT AND ORIENTED. HS MEDS PER EMAR. DESENEX POWDER TO SKIN FOLDS WITH EXCORIATION. DE SANTIAGO TO DD WITH CLEAR YELLOW OUTPUT. DISCUSSED BLOOD SUGAR CHECKS WITH MELANI AND CHANGED TO ACHS CHECKS. PRN SOLO FOR PAIN PER EMAR.
[2022-01-12 04:14] VITALS: BP 123/46; PULSE 63; TEMP 97.6
[2022-01-12 06:26] LABS: BASO % 0.1 % (0.0-2.0); EOS # 0.1 K/mm3 (0.0-0.7); EOS % 0.5 % (0.0-4.0); GRAN # 9.9 K/mm3 (1.4-6.5); GRAN % 81.2 % (42.2-75.2); LYMPH # 0.9 K/mm3 (1.2-3.4); LYMPH % 7.4 % (20.0-51.0); MEAN CELL VOLUME 92 fl (80.0-100.0); MEAN CORPUSCULAR HGB CONC 29 g/dl (33.0-37.0); MEAN PLATELET VOLUME 9.8 fl (7.4-10.4); MONO # 1.2 K/mm3 (0.1-0.6); MONO % 10.2 % (1.7-9.3); PLATELET COUNT 283 K/mm3 (130-400); RED BLOOD COUNT 2.64 M/mm3 (4.10-5.30); REDCELL DISTRIBUTION WIDTH-CV 15.3 % (11.5-14.5)
[2022-01-12 06:46] LABS: HEMATOCRIT 24.2 % (37.0-47.0); HEMOGLOBIN 7.1 g/dl (12.5-16.0); MEAN CORPUSCULAR HEMOGLOBIN 27 pg (27-31)
[2022-01-12 06:50] LABS: CALCIUM 8.3 mg/dL (8.4-10.2); CREATININE, serum 0.98 mg/dL (0.57-1.11); POTASSIUM 4.9 mmol/L (3.5-4.5)
[2022-01-12 07:52] VITALS: BP 124/80; PULSE 73; TEMP 98.2
[2022-01-12] MEDS ORDERED: TYLENOL 500MG500 MG PO (09:47)
[2022-01-12] MEDS ORDERED: ROXICODONE15 MG PO (09:51)
[2022-01-12] MEDS ORDERED: NORVASC 5MG5 MG/TAB PO (09:57)
--- NOTE | 2022-01-12 10:35 | NUR ---
Kang, at [facility], reports that they will have to decline the patient; due to having an outstanding bill of $10,000 with them from her last stay with them. Radha, at [facility], reports that they are able to accept the patient for a skilled stay today. MICHAEL updated the clinical team. SW updated the patient and [facility]'s acceptance. The patient is agreeable with going to [facility]. SW presented and read the IM form outloud to the patient. The patient verbalized understanding and of agreement to discharge today. She signed the form and she was provided with a copy. The patient is to discharge today, 01/12, to [facility] for a skilled stay. Transportation was scheduled at 1330, via [facility]. MICHAEL informed the patient and her RN of the time. No additional needs at this time.
[2022-01-12 11:25] VITALS: BP 138/59; PULSE 73; TEMP 98.2
--- NOTE | 2022-01-12 15:40 | NUR ---
PATIENT LEFT WITH ALL BELONGINGS. REPORT CALLED TO ELIAN. ALL QUESTIONS ANSWERED.
== END 2022-01-12 14:15 | DRG 481 ==
LOC: COL.ER 16:04 → SURG 18:04 → EDBEDREQTM 18:34 → EDBEDREQ 18:34 → SURG 20:10
PROVIDERS: Emergency Medicine; Orthopaedic Surgery Sports Medicine; Physician Assistant; Student in an Organized Health Care Education/Training Program; ADMIT Internal Medicine
PROC: 0SSFXZZ Reposition Right Ankle Joint, External Approach (ICD-10-PCS; 2022-01-08)
PROC: 2W3QX1Z Immobilization of Right Lower Leg using Splint (ICD-10-PCS; 2022-01-10)
PROC: 0QSB04Z Reposition Right Lower Femur with Internal Fixation Device, Open Approach (ICD-10-PCS; principal; 2022-01-10 14:00)
DX: S72.401A Unspecified fracture of lower end of right femur, initial encounter for closed fracture (principal); M97.11XA Periprosthetic fracture around internal prosthetic right knee joint, initial encounter; N17.9 Acute kidney failure, unspecified; I50.30 Unspecified diastolic (congestive) heart failure; Z68.41 Body mass index [BMI] 40.0-44.9, adult; I48.0 Paroxysmal atrial fibrillation; E03.9 Hypothyroidism, unspecified; E66.01 Morbid (severe) obesity due to excess calories; E05.00 Thyrotoxicosis with diffuse goiter without thyrotoxic crisis or storm; Z96.653 Presence of artificial knee joint, bilateral; W10.9XXA Fall (on) (from) unspecified stairs and steps, initial encounter; G89.29 Other chronic pain; M54.9 Dorsalgia, unspecified; S93.04XA Dislocation of right ankle joint, initial encounter; S82.831A Other fracture of upper and lower end of right fibula, initial encounter for closed fracture; G47.33 Obstructive sleep apnea (adult) (pediatric); J45.909 Unspecified asthma, uncomplicated; E11.42 Type 2 diabetes mellitus with diabetic polyneuropathy; Z20.822 Contact with and (suspected) exposure to COVID-19; I08.0 Rheumatic disorders of both mitral and aortic valves; E78.5 Hyperlipidemia, unspecified; N28.1 Cyst of kidney, acquired; E27.8 Other specified disorders of adrenal gland; S82.841A Displaced bimalleolar fracture of right lower leg, initial encounter for closed fracture; G89.11 Acute pain due to trauma; I11.0 Hypertensive heart disease with heart failure; E87.5 Hyperkalemia; D64.9 Anemia, unspecified; Y93.89 Activity, other specified; Z79.01 Long term (current) use of anticoagulants; Y92.89 Other specified places as the place of occurrence of the external cause; Z90.89 Acquired absence of other organs; Z88.8 Allergy status to other drugs, medicaments and biological substances; Z79.890 Hormone replacement therapy; Z87.891 Personal history of nicotine dependence; Z79.84 Long term (current) use of oral hypoglycemic drugs; Z23 Encounter for immunization
CPT/HCPCS: 99233-AI; A9284; C1713; C1776; J0690; J1100; J1170; J1815; J2175; J2250; J2270; J2405; J2704; J2795; J3010; J7030; J7120

== ENCOUNTER 2022-07-23 14:57 | Observation (INO) | payer MEDICARE, MEDICAID ==
[~2022-07-23] VITALS: Ht 162.6 cm; Wt 121.1 kg
[~2022-07-23 14:57] MED LIST changes: +DAZIDOX10 MG PO; +NORVASC 5MG5 MG/TAB PO; +PRESERVISION1 SGL PO; +ROXICODONE15 MG PO; +TYLENOL 500MG500 MG PO
[2022-07-23 16:15] LABS: BASO % 0.3 % (0.0-2.0); EOS # 0.2 K/mm3 (0.0-0.7); EOS % 2.8 % (0.0-4.0); GRAN # 5.7 K/mm3 (1.4-6.5); GRAN % 73.4 % (42.2-75.2); LYMPH # 0.9 K/mm3 (1.2-3.4); MEAN CELL VOLUME 82 fl (80.0-100.0); MEAN CORPUSCULAR HGB CONC 30 g/dl (33.0-37.0); MEAN PLATELET VOLUME 9.1 fl (7.4-10.4); MONO # 0.9 K/mm3 (0.1-0.6); MONO % 11.2 % (1.7-9.3); PLATELET COUNT 275 K/mm3 (130-400); RED BLOOD COUNT 3.55 M/mm3 (4.10-5.30); REDCELL DISTRIBUTION WIDTH-CV 16.9 % (11.5-14.5)
[2022-07-23 16:16] LABS: HEMOGLOBIN 8.7 g/dl (12.5-16.0); MEAN CORPUSCULAR HEMOGLOBIN 25 pg (27-31)
[2022-07-23 16:35] LABS: ERYTHROCYTE SEDIMENTATION RATE 67 mm/hr (0-30)
[2022-07-23 17:04] LABS: ALBUMIN 3.3 gm/dL (3.4-4.8); ALKALINE PHOSPHATASE 93 U/L (40-150); ANION GAP 11 mmol/L (7-16); AST,SGOT 15 U/L (5-34); BILIRUBIN,TOTAL 0.3 mg/dL (0.2-1.2); BLOOD UREA NITROGEN 25 mg/dL (10-20); C-REACTIVE PROTEIN 0.43 mg/dL (0.00-0.50); CALCIUM 9.5 mg/dL (8.4-10.2); CARBON DIOXIDE 26 mmol/L (23-31); CHLORIDE 106 mmol/L (98-107); CREATININE, serum 1.22 mg/dL (0.57-1.11); GLUCOSE 102 mg/dL (70-99); POTASSIUM 4.3 mmol/L (3.5-4.5); SODIUM 143 mmol/L (136-145); TOTAL PROTEIN 7.2 gm/dL (6.2-8.1)
[2022-07-23 17:06] LABS: ALANINE AMINOTRANSFERASE < 6 U/L (0-55)
[2022-07-23] MEDS ORDERED: PRINIVIL5 MG PO (18:13)
[2022-07-23] MEDS ORDERED: KAPSPARGO SPRIN25 MG PO (18:14)
[2022-07-23] MEDS ORDERED: ATARAX 25MG25 MG/TAB PO (18:15)
[2022-07-23 20:00] VITALS: BP 139/34; PULSE 67; TEMP 98.6
--- NOTE | 2022-07-23 21:45 | NUR ---
REPORT RCVD FROM [facility]. THE PATIENT IS NEW TO THE FLOOR. SHE STATES THAT HER RIGHT LEG HURTS REALLY BAD AT THIS TIME. THIS IS EXACERBATED BY STANDING ON IT. THE PATIENT IS ABLE TO STAND AND PIVOT FROM THE ER STRETCHER TO THE HOSPITAL ROOM BED. BLE ARE REDDENED AND WARM TO THE TOUCH, THE RIGHT ANKLE IS SCALING AND HAS SOME SCABBING. RIGHT AC IV WAS REDRESSED BY [facility]. ASSESSMENT COMPLETED.
[2022-07-23] MEDS ORDERED: REQUIP 1MG T1 MG/TAB PO (22:18)
[2022-07-23] MEDS ORDERED: REQUIP 0.5MG0.5 MG PO (22:18)
[2022-07-23] MEDS ORDERED: LIPITOR 40MG TA40 MG PO (22:20)
[2022-07-23] MEDS ORDERED: FOSAMAX 70MG TA70 MG PO (22:21)
[2022-07-23] MEDS ORDERED: NEURONTIN300 MG/CAP PO (22:27)
[2022-07-24] VITALS (7 sets, daily range): BP systolic 112–143; BP diastolic 33–67; PULSE 59–72; TEMP 97.8–101.2
--- NOTE | 2022-07-24 04:31 | NUR ---
Vancomycin Initial Dosing Pharmacy Note Ordering provider: Claude Nunn MD Indication/duration: Concern for septic joint. Relevant comorbidities: HTN, DM LABS: SCr = 1.22 Recommendation: Will draw troughs and follow levels. Loading dose: 2.5 grams Maintenance dose: 1.5 grams every 24 hours Trough goal: 15-20 ug/mL
[2022-07-24 04:52] LABS: COLLECTION METHOD CLEAN CATCH
[2022-07-24 05:00] LABS: PH 5.5 (5.0-8.5); URINE APPEARANCE Clear (CLEAR/HAZY); URINE BLOOD Negative (NEGATIVE); URINE COLOR Yellow (YELLOW); URINE GLUCOSE Negative (NEGATIVE); URINE KETONE Negative (NEGATIVE); URINE NITRATE Negative (NEGATIVE); URINE PROTEIN(semi-quant) Negative (NEGATIVE)
[2022-07-24 05:02] LABS: MUCOUS Present (NOT PRESENT); URINE BACTERIA Rare /hpf (NONE SEEN); URINE RBC None Seen /hpf (0-2)
[2022-07-24 07:45] LABS: SYNOVIAL FL. MONONUCLEAR 37.5 % (0-75)
[2022-07-24 07:47] LABS: SYNOVIAL FLUID RBC 1670000 /mm3 (0-0); SYNOVIAL FLUID WBC 2240 /mm3 (200-600)
[2022-07-24 07:52] LABS: SYNOVIAL FLUID COLOR RED
[2022-07-24 07:53] LABS: SYNOVIAL FLUID APPEARANCE BLOODY
--- NOTE | 2022-07-24 08:57 | NUR ---
Patient sleeping soundly in bed at this time. Patient had a busy morning. Ble ultrasound completed. rounded early this am and aspiration completed to Right ankle. Specimen sent to lab. obtained concent himself. Patient was assisted to bedside commode this am with one assist. gaitbelt and walker used. She voided. Right lower extremity elevated and iced. Will monitor.
--- NOTE | 2022-07-24 10:14 | NUR ---
Initial visit; Patient thanked Dowel Inserting Machine Operator for looking in on her, introducing herself and offering Spiritual Care. Patient thanked Dowel Inserting Machine Operator for offering God's blessings.
[2022-07-24] MEDS ORDERED: TYLENOL 500MG500 MG PO (10:38)
--- NOTE | 2022-07-24 10:57 | NUR ---
Patient given am medications with sip of water, held pradaxa per orthopedics. Had called Jake Glass and order to hold until plan of care reviewed. Patient medication list reviewed & medication list edited. Patient very aware of her med list and corrections made
--- NOTE | 2022-07-24 11:10 | NUR ---
Spoke with Jake Glass and patient able to eat. No plans for OR. Called Phyllis Glass and made her I made changes to medrec.
--- NOTE | 2022-07-24 14:33 | NUR ---
Shipping And Receiving Specialist met with patient to discuss discharge planning. Patient lives alone in [place] and sees Dr. Blandon for primary care. Patient advised she was at [facility] until about five weeks ago when she was discharged home. Patient advised she uses a walker for ambulation and that things have been going well at home. Patient advised she had [facility] and was still getting a shower aide. Patient does not have DPOA-HC but was interested in the form. SW provided. Patient does not want to return to SNF but would be open to restarting Home Health through [facility] at time of discharge. MICHAEL faxed referral to [facility]. PT/OT ordered. Discharge Plan: Home with [facility]
--- NOTE | 2022-07-24 16:26 | NUR ---
Patient assisted back to bed from chair, bedside commode used, she voided without troubles. Patient reports elevated pain, Right ankle iced & elevated. Pain medication per request. Will monitor.
--- NOTE | 2022-07-24 18:54 | NUR ---
Patient resting in bed. Denies needs at this time. Nightnurse to resume cares
--- NOTE | 2022-07-25 00:46 | NUR ---
SHIFT REPORT FROM CRISTY ENG. PATIENT IN BED ON ROOM ENTRY. ALERT AND ORIENTED. X1 ASSIST TO BEDSIDE COMMODE. PATIENT BECAME NAUSEATED ON COMMODE AND ATTEMPTED TO GIVE IV ZOFRAN, HOWEVER PATIENTS IV HAD INFILTRATED, ATTEMPTED RESTART X1 BY PHOTOVOLTAIC TECHNICIAN AND PATIENT REFUSES ANOTHER ATTEMPT AND STATES SHE WANTS A PICC LINE AND SUBLINGUAL ZOFRAN. NOTIFIED MICHELLE ZARAGOZA AND ORDER FOR SUBLINGUAL ZOFRAN AND KEEP IV OUT AT THIS TIME. PATIENT REFUSED HS MEDICATIONS, THEN AGREED TO TAKE SOME OF THEM AROUND MIDNIGHT. MIDNIGHT TEMP 101.2, TYLENOL HAD JUST BEEN GIVEN. WILL RECHECK. DENIES ADDITIONAL NEEDS AT THIS TIME. CALL LIGHT IN REACH.
[2022-07-25 03:57] VITALS: BP 127/38; PULSE 69; TEMP 99.1
[2022-07-25 07:37] VITALS: BP 120/48; PULSE 65; TEMP 98.7
[2022-07-25] MEDS ORDERED: MIRALAX PA17 GM/Dose PO (09:06)
[2022-07-25] MEDS ORDERED: DULCOLAX STOOL100 MG PO (09:07)
[2022-07-25 09:55] LABS: MEAN CELL VOLUME 82 fl (80.0-100.0); MEAN CORPUSCULAR HGB CONC 30 g/dl (33.0-37.0); PLATELET COUNT 247 K/mm3 (130-400); RED BLOOD COUNT 3.59 M/mm3 (4.10-5.30); REDCELL DISTRIBUTION WIDTH-CV 16.7 % (11.5-14.5)
[2022-07-25 09:57] LABS: HEMATOCRIT 29.4 % (37.0-47.0); HEMOGLOBIN 8.9 g/dl (12.5-16.0); MEAN CORPUSCULAR HEMOGLOBIN 25 pg (27-31)
[2022-07-25 10:12] LABS: CALCIUM 8.6 mg/dL (8.4-10.2); CREATININE, serum 1.15 mg/dL (0.57-1.11); POTASSIUM 4.4 mmol/L (3.5-4.5)
[2022-07-25 11:21] VITALS: BP 123/52; PULSE 69; TEMP 98.6
--- NOTE | 2022-07-25 13:16 | NUR ---
Setter Machine attended clinical rounds with the team and patient is ready for discharge today. SW met with patient who understands she may be "medically" ready but does not feel "physically" ready. Patient again states she wants to return home with , she just does not feel quite ready. Patient again denies need for SNF. MICHAEL advised patient she is observation status and will be discharged today. MICHAEL contacted Gerson at [facility] and faxed discharge orders. Discharge Plan: Home with [facility]
[2022-07-25 15:27] VITALS: BP 120/55; PULSE 72; TEMP 98.5
== END 2022-07-25 15:55 | disposition home health service (06) ==
LOC: COL.ER 14:57 → SURG 18:22 → EDBEDREQTM 20:19 → EDBEDREQ 20:19 → SURG 07-25 15:55
PROVIDERS: Emergency Medicine; Internal Medicine; Orthopaedic Surgery; Student in an Organized Health Care Education/Training Program; ADMIT Internal Medicine
DX: M25.471 Effusion, right ankle (principal); M79.661 Pain in right lower leg; D64.9 Anemia, unspecified; I11.0 Hypertensive heart disease with heart failure; I50.32 Chronic diastolic (congestive) heart failure; I48.0 Paroxysmal atrial fibrillation; E11.9 Type 2 diabetes mellitus without complications; E03.9 Hypothyroidism, unspecified; E66.01 Morbid (severe) obesity due to excess calories; G89.29 Other chronic pain; M54.9 Dorsalgia, unspecified; G25.81 Restless legs syndrome; K59.00 Constipation, unspecified; Z87.81 Personal history of (healed) traumatic fracture; Z79.899 Other long term (current) drug therapy; Z79.84 Long term (current) use of oral hypoglycemic drugs; Z79.890 Hormone replacement therapy; Z87.891 Personal history of nicotine dependence; Z86.16 Personal history of COVID-19; Z79.02 Long term (current) use of antithrombotics/antiplatelets
CPT/HCPCS: G0378; J2405; J3010; J3370; J7050

== ENCOUNTER 2022-08-21 12:59 | Outpatient (CLI) | payer MEDICARE, MEDICAID ==
[2006-04-22 13:39] VITALS: BP 162/79
[~2022-08-21] VITALS: Ht 162.6 cm; Wt 118.1 kg
[~2022-08-21 12:59] MED LIST changes: +ATARAX 25MG25 MG/TAB PO; +DULCOLAX STOOL100 MG PO; +FOSAMAX 70MG TA70 MG PO; +KAPSPARGO SPRIN25 MG PO; +LIPITOR 40MG TA40 MG PO; +PRINIVIL5 MG PO; +REQUIP 0.5MG0.5 MG PO; +REQUIP 1MG T1 MG/TAB PO
[2022-08-21 13:48] VITALS: BP 135/76; PULSE 57; TEMP 97.7
--- NOTE | 2022-08-21 14:45 | NUR ---
PT STATES SHE IS FEELING FINE. NO ITCHING OR SIGNS OF REACTION. IV REMOVED. PT WHEELED DOWN TO FRONT LOBBY. SHE WANTS TO WAIT FOR HER RIDE THERE.
== END 2022-08-21 14:50 | disposition home or self-care (01) ==
LOC: EUO 12:59
DX: D50.9 Iron deficiency anemia, unspecified (principal)
CPT/HCPCS: J1756

== ENCOUNTER 2022-09-05 12:45 | Outpatient (RCR) | payer MEDICARE, MEDICAID | END 2022-09-15 | disposition home or self-care (01) | LOC: MKS.ESL.PT | DX: R26.89 Other abnormalities of gait and mobility (principal); M25.471 Effusion, right ankle; M25.571 Pain in right ankle and joints of right foot ==

== ENCOUNTER 2022-10-12 16:03 | Outpatient (RCR) | payer MEDICARE, MEDICAID | END 2022-10-12 16:05 | LOC: MKS.ESL.PT 16:03 | DX: R26.89 Other abnormalities of gait and mobility (principal); M25.571 Pain in right ankle and joints of right foot ==

== ENCOUNTER → 2023-04-11 | Outpatient (CLI) | payer MEDICARE, MEDICAID ==
[~2023-04-11] MED LIST changes: +PROTONIX 40MG T40 MG PO
== END ==
LOC: CANPRECLI → MC.RAD 02-06 13:30
DX: Z12.31 Encounter for screening mammogram for malignant neoplasm of breast (principal)

== ENCOUNTER → 2023-04-20 | Outpatient (CLI) | payer MEDICARE, MEDICAID ==
[2006-04-23 11:40] VITALS: BP 162/79; PULSE 66; TEMP 98.1
== END ==
LOC: MC.RAD 13:49
DX: N63.21 Unspecified lump in the left breast, upper outer quadrant (principal); D05.12 Intraductal carcinoma in situ of left breast

== ENCOUNTER 2024-01-05 00:47 | Emergency (ER) | payer MEDICARE, MEDICAID ==
[~2024-01-05] VITALS: Ht 162.6 cm; Wt 111.4 kg
[~2024-01-05 00:47] MED LIST changes: +NYSTATIN POWDER15 GM TOP; +VITAMIN D31000 IU PO
[2024-01-05 01:19] LABS: BASO % 0.2 % (0.0-2.0); EOS # 0.3 K/mm3 (0.0-0.7); EOS % 3.3 % (0.0-4.0); GRAN # 5.3 K/mm3 (1.4-6.5); HEMOGLOBIN 10.3 g/dl (12.5-16.0); LYMPH # 1.8 K/mm3 (1.2-3.4); LYMPH % 21.8 % (20.0-51.0); MEAN CELL VOLUME 99 fl (80.0-100.0); MEAN CORPUSCULAR HEMOGLOBIN 30 pg (27-31); MEAN CORPUSCULAR HGB CONC 31 g/dl (33.0-37.0); MEAN PLATELET VOLUME 9.6 fl (7.4-10.4); MONO # 0.8 K/mm3 (0.1-0.6); MONO % 9.3 % (1.7-9.3); PLATELET COUNT 257 K/mm3 (130-400); RED BLOOD COUNT 3.41 M/mm3 (4.10-5.30); REDCELL DISTRIBUTION WIDTH-CV 12.7 % (11.5-14.5)
[2024-01-05 01:22] LABS: HEMATOCRIT 33.8 % (37.0-47.0)
[2024-01-05 01:26] LABS: INR 1.1 (0.8-3.0); PROTHROMBIN TIME 12.4 SECONDS (9.7-12.8)
[2024-01-05 01:29] LABS: PARTIAL THROMBOPLASTIN TIME 52.2 SECONDS (26.0-37.0)
[2024-01-05 01:33] LABS: ALANINE AMINOTRANSFERASE 22 U/L (0-55); ALBUMIN 3.4 g/dL (3.4-4.8); ALKALINE PHOSPHATASE 83 U/L (40-150); ANION GAP 11 mmol/L (7-16); AST,SGOT 16 U/L (5-34); BILIRUBIN,TOTAL 0.3 mg/dL (0.2-1.2); BLOOD UREA NITROGEN 23 mg/dL (10-20); CALCIUM 9.1 mg/dL (8.4-10.2); CHLORIDE 106 mEq/L (98-107); CREATININE, serum 1.48 mg/dL (0.57-1.11); GLUCOSE 129 mg/dL (70-99); LIPASE 50 U/L (8-78); POTASSIUM 4.1 mEq/L (3.5-4.5); SODIUM 143 mEq/L (136-145); TOTAL PROTEIN 6.6 g/dl (6.2-8.1)
[2024-01-05 01:34] LABS: D-DIMER < 200.00 ng/mLDDu (200-230)
[2024-01-05 01:53] LABS: TSH w REFLEX 1.278 uIU/mL (0.350-4.940)
[2024-01-05 01:58] LABS: TROPONIN-I < 0.010 ng/mL (0.00-0.033)
[2024-01-05 04:50] VITALS: BP 122/43; PULSE 59
== END 2024-01-05 04:50 | disposition home or self-care (01) ==
LOC: COL.ER 00:47
PROVIDERS: Emergency Medicine
DX: R07.89 Other chest pain (principal); R00.2 Palpitations; E66.01 Morbid (severe) obesity due to excess calories; Z68.41 Body mass index [BMI] 40.0-44.9, adult

== ENCOUNTER 2024-04-10 14:54 | Outpatient (CLI) | payer MEDICARE, MEDICAID ==
[2006-04-22 13:39] VITALS: BP 162/79
[2024-04-10 14:56] VITALS: BP 118/67; PULSE 60; TEMP 97
[2024-04-10] MEDS ORDERED: Denosumab 60 MG/ML SYRINGE SQ ONE (15:15)
== END 2024-04-10 15:50 ==
LOC: EUO 14:54
DX: M81.0 Age-related osteoporosis without current pathological fracture (principal)
CPT/HCPCS: J0897